=== PATIENT | female | born 1980 | race Caucasian/White ===

== ENCOUNTER 2018-05-01 07:18 | Emergency (ER) | payer SELFPAY ==
[~2018-05-01] VITALS: Ht 157.5 cm; Wt 59.1 kg
[2018-05-01] MEDS ORDERED: ONDANSETRON HCL 4 MG/2 ML VIAL IVP ONE (08:45)
[2018-05-01] MEDS ORDERED: PANTOPRAZOLE SODIUM 40 MG/VIAL IVP ONE (08:45)
[2018-05-01 08:48] LABS: BASOPHILS % (AUTO) 0.2 % (0.0-2.0); EOSINOPHILS % (AUTO) 0.7 % (1.0-6.0); HEMATOCRIT 36.3 % (36-46); HEMOGLOBIN 12.4 g/dL (12.0-16.0); LYMPHOCYTES # (AUTO) 1.3 K/uL (1.0-4.8); LYMPHOCYTES % (AUTO) 11.2 % (22.0-44.0); MEAN CORPUSCULAR HEMOGLOBIN 29.5 pg (26.0-34.0); MEAN CORPUSCULAR HGB CONC 34.2 G/dL (31.0-37.0); MEAN CORPUSCULAR VOLUME 86 fL (80-100); MONOCYTES # (AUTO) 0.4 K/uL (0.1-1.0); MONOCYTES % (AUTO) 3.8 % (2.0-9.0); NEUTROPHILS # (AUTO) 9.5 K/uL (1.8-7.7); NEUTROPHILS % (AUTO) 84.1 % (40.0-70.0); PLATELET COUNT (AUTO) 256 K/uL (150-450); RED BLOOD CELL COUNT(AUTO) 4.21 MIL/uL (4.00-5.20)
[2018-05-01 08:58] LABS: ANION GAP 12 mmol/L (8-16); CALCIUM, TOTAL 8.6 mg/dL (8.8-10.5); CARBON DIOXIDE 21 mmol/L (22-29); CHLORIDE 104 mmol/L (98-107); CREATININE 0.49 mg/dL (0.60-1.30); GLOMERULAR FILTR. RATE CALC > 60 mL/min (>60); GLUCOSE,RANDOM 119 mg/dL (70-110); POTASSIUM 3.6 mmol/L (3.5-5.1); SODIUM SERUM 137 mmol/L (136-145); UREA NITROGEN, BLOOD 9 mg/dL (7-18)
[2018-05-01 09:03] LABS: ALANINE AMINOTRANSFERASE 22 U/L (12-78); ALBUMIN 3.8 g/dL (3.4-5.0); ALKALINE PHOSPHATASE 62 U/L (46-116); ASPARTATE AMINOTRANSFERASE 12 U/L (15-37); BILIRUBIN,TOTAL 0.5 mg/dL (0.1-1.0); LIPASE 124 U/L (73-393); TOTAL PROTEIN, SERUM 7.5 g/dL (6.4-8.2)
[2018-05-01 09:18] LABS: APPEARANCE,URINE CLEAR (CLEAR); BILIRUBIN,URINE NEGATIVE (NEGATIVE); GLUCOSE, URINE (UA) NEGATIVE (NEGATIVE); KETONES,URINE 15 mg/dL (NEGATIVE); LEUKOCYTE ESTERASE ,URINE NEGATIVE (NEGATIVE); NITRATE,URINE NEGATIVE (NEGATIVE); OCCULT BLOOD,URINE NEGATIVE (NEGATIVE); PH,URINE 8.5 (5.0-8.0); PROTEIN,URINE POS 1+ (NEGATIVE); UROBILINOGEN,URINE 0.2 mg/dL (<=1.0)
[2018-05-01 09:55] VITALS: BP 109/55
== END 2018-05-01 09:58 | disposition home or self-care (01) ==
LOC: EMS 07:19
DX: K80.20 Calculus of gallbladder without cholecystitis without obstruction (principal)
CPT/HCPCS: 36415; 76700; 80053; 81003; 83690; 84703; 85025; 96374; 96375; 99285; C9113; J2405

== ENCOUNTER 2018-10-24 17:23 | Inpatient (IN) | payer MEDICAID ==
[~2018-10-24] VITALS: Ht 162.6 cm; Wt 63.2 kg
[2018-10-24] MEDS ORDERED: ONDANSETRON HCL 4 MG/2 ML VIAL IVP ONE (18:15)
[2018-10-24] MEDS ORDERED: KETOROLAC TROMETHAMINE 30 MG/ML VIAL IVP ONE (18:15)
[2018-10-24 18:32] LABS: APPEARANCE,URINE CLOUDY (CLEAR); BILIRUBIN,URINE NEGATIVE (NEGATIVE); GLUCOSE, URINE (UA) NEGATIVE (NEGATIVE); KETONES,URINE TRACE mg/dL (NEGATIVE); LEUKOCYTE ESTERASE ,URINE NEGATIVE (NEGATIVE); NITRATE,URINE NEGATIVE (NEGATIVE); OCCULT BLOOD,URINE NEGATIVE (NEGATIVE); PROTEIN,URINE NEGATIVE (NEGATIVE); UROBILINOGEN,URINE 0.2 mg/dL (<=1.0)
[2018-10-24 18:33] LABS: BASOPHILS % (AUTO) 0.6 % (0.0-2.0); EOSINOPHILS % (AUTO) 2.4 % (1.0-6.0); HEMATOCRIT 37.7 % (36-46); HEMOGLOBIN 12.5 g/dL (12.0-16.0); LYMPHOCYTES # (AUTO) 2.8 K/uL (1.0-4.8); LYMPHOCYTES % (AUTO) 38.4 % (22.0-44.0); MEAN CORPUSCULAR HEMOGLOBIN 27.3 pg (26.0-34.0); MEAN CORPUSCULAR HGB CONC 33.3 G/dL (31.0-37.0); MEAN CORPUSCULAR VOLUME 82 fL (80-100); MONOCYTES # (AUTO) 0.5 K/uL (0.1-1.0); MONOCYTES % (AUTO) 6.7 % (2.0-9.0); NEUTROPHILS # (AUTO) 3.7 K/uL (1.8-7.7); NEUTROPHILS % (AUTO) 51.9 % (40.0-70.0); PLATELET COUNT (AUTO) 336 K/uL (150-450); RED CELL DISTRIBUTION WIDTH 14.6 % (11.5-14.5)
[2018-10-24 18:36] LABS: ANION GAP 12 mmol/L (8-16); CALCIUM, TOTAL 8.8 mg/dL (8.8-10.5); CARBON DIOXIDE 23 mmol/L (22-29); CHLORIDE 102 mmol/L (98-107); CREATININE 0.53 mg/dL (0.60-1.30); GLOMERULAR FILTR. RATE CALC > 60 mL/min (>60); GLUCOSE,RANDOM 103 mg/dL (70-110); POTASSIUM 3.5 mmol/L (3.5-5.1); SODIUM SERUM 137 mmol/L (136-145); UREA NITROGEN, BLOOD 12 mg/dL (7-18)
[2018-10-24 18:43] LABS: ALANINE AMINOTRANSFERASE 36 U/L (12-78); ALBUMIN 3.8 g/dL (3.4-5.0); ALKALINE PHOSPHATASE 88 U/L (46-116); ASPARTATE AMINOTRANSFERASE 37 U/L (15-37); BILIRUBIN,TOTAL 0.4 mg/dL (0.1-1.0); LIPASE 856 U/L (73-393); TOTAL PROTEIN, SERUM 8.3 g/dL (6.4-8.2)
[2018-10-24] MEDS ORDERED: 0.9% SODIUM CHLORIDE 10 ML SYRINGE IVP PRN (20:30)
[2018-10-24] MEDS ORDERED: ACETAMINOPHEN 325 MG TABLET PO PRN (20:30)
[2018-10-24] MEDS ORDERED: ONDANSETRON HCL 4 MG/2 ML VIAL IVP PRN (20:30)
[2018-10-24] MEDS ORDERED: HYDROmorphone 2 MG/ML SYRINGE IVP PRN (20:30)
[2018-10-24] MEDS ORDERED: SODIUM CHLORIDE 0.9% 1,000 ML IV ONE (20:30)
[2018-10-24 21:37] VITALS: BP 130/72
[2018-10-25 00:10] VITALS: BP 117/77
[2018-10-25 05:07] VITALS: BP 107/57
[2018-10-25 06:26] LABS: BASOPHILS % (AUTO) 0.7 % (0.0-2.0); EOSINOPHILS % (AUTO) 2.6 % (1.0-6.0); HEMATOCRIT 32.9 % (36-46); HEMOGLOBIN 11.5 g/dL (12.0-16.0); LYMPHOCYTES # (AUTO) 2.3 K/uL (1.0-4.8); LYMPHOCYTES % (AUTO) 40.5 % (22.0-44.0); MEAN CORPUSCULAR HEMOGLOBIN 28.5 pg (26.0-34.0); MEAN CORPUSCULAR HGB CONC 34.8 G/dL (31.0-37.0); MEAN CORPUSCULAR VOLUME 82 fL (80-100); MONOCYTES # (AUTO) 0.4 K/uL (0.1-1.0); MONOCYTES % (AUTO) 7.4 % (2.0-9.0); NEUTROPHILS # (AUTO) 2.7 K/uL (1.8-7.7); NEUTROPHILS % (AUTO) 48.8 % (40.0-70.0); PLATELET COUNT (AUTO) 273 K/uL (150-450); RED BLOOD CELL COUNT(AUTO) 4.02 MIL/uL (4.00-5.20); RED CELL DISTRIBUTION WIDTH 14.5 % (11.5-14.5)
[2018-10-25 06:48] LABS: ALANINE AMINOTRANSFERASE 73 U/L (12-78); ALKALINE PHOSPHATASE 75 U/L (46-116); ANION GAP 7 mmol/L (8-16); ASPARTATE AMINOTRANSFERASE 55 U/L (15-37); BILIRUBIN,TOTAL 0.5 mg/dL (0.1-1.0); CALCIUM, TOTAL 8.3 mg/dL (8.8-10.5); CARBON DIOXIDE 26 mmol/L (22-29); CHLORIDE 106 mmol/L (98-107); CREATININE 0.44 mg/dL (0.60-1.30); GLOMERULAR FILTR. RATE CALC > 60 mL/min (>60); GLUCOSE,RANDOM 90 mg/dL (70-110); POTASSIUM 3.6 mmol/L (3.5-5.1); SODIUM SERUM 139 mmol/L (136-145); TOTAL PROTEIN, SERUM 6.5 g/dL (6.4-8.2); UREA NITROGEN, BLOOD 9 mg/dL (7-18)
[2018-10-25] MEDS ORDERED: ONDANSETRON HCL 4 MG/2 ML VIAL IVP PRN (07:00)
[2018-10-25 07:10] LABS: AMYLASE 57 U/L (25-115); LIPASE 133 U/L (73-393)
[2018-10-25 07:51] VITALS: BP 114/52
[2018-10-25] MEDS: DEXTROSE 5%-0.45% SODIUM CHL 1,000 ML IV SCH ×2 (08:05→19:56)
[2018-10-25] MEDS ORDERED: RINGERS SOLUTION,LACTATED 1,000 ML IV ONE ×4 (11:17→17:37)
[2018-10-25 11:18] VITALS: BP 120/74
[2018-10-25 11:58] LABS: PROTHROMBIN TIME 10.5 SEC (9.4-11.6)
[2018-10-25] MEDS ORDERED: IOHEXOL 240 MG/ML 20 ML VIAL ONE (14:34)
[2018-10-25] MEDS ORDERED: BUPIVACAINE 0.25%/EPI 1:200,000/PF 10 ML VIAL ONE (14:38)
[2018-10-25] MEDS ORDERED: SODIUM CL IRRIG SOLN BAG 3,000 ML IRRIG ONE (14:39)
[2018-10-25] MEDS ORDERED: FentaNYL CITRATE-PF 100 MCG/2 ML VIAL IVP PRN ×2 (14:45→17:45)
[2018-10-25] MEDS ORDERED: MEPERIDINE-PF 25 MG/ML VIAL IVP PRN ×2 (14:45→17:45)
[2018-10-25] MEDS ORDERED: HYDROmorphone 2 MG/ML SYRINGE IVP PRN ×2 (14:45→17:45)
[2018-10-25 19:00] VITALS: BP 129/70
[2018-10-25] MEDS: HYDROmorphone 2 MG/ML SYRINGE IVP PRN ×2 (19:30→23:45)
[2018-10-25] MEDS ORDERED: OXYGEN THERAPY IH SCH ×2 (20:00)
[2018-10-26 00:11] VITALS: BP 115/55
[2018-10-26 04:00] VITALS: BP 118/72
[2018-10-26] MEDS ORDERED: DEXAMETHASONE SOD PHOS 4 MG/ML VIAL IVP ONE (05:23)
[2018-10-26] MEDS ORDERED: FentaNYL CITRATE-PF 100 MCG/2 ML VIAL IVP ONE (05:23)
[2018-10-26] MEDS ORDERED: LIDOCAINE/PF 2% 5 ML VIAL IM ONE (05:23)
[2018-10-26] MEDS ORDERED: SUCCINYLCHOLINE CHLORIDE 20 MG/ML 10 ML VIAL IVP ONE (05:23)
[2018-10-26] MEDS ORDERED: PROPOFOL 1% 20 ML VIAL IVP ONE (05:23)
[2018-10-26] MEDS ORDERED: MIDAZOLAM HCL 2 MG/2 ML VIAL IVP ONE (05:23)
[2018-10-26] MEDS ORDERED: ONDANSETRON HCL 4 MG/2 ML VIAL IVP ONE (05:23)
[2018-10-26] MEDS ORDERED: ROCURONIUM BROMIDE 10 MG/ML 5 ML VIAL IVP ONE (05:23)
[2018-10-26] MEDS ORDERED: 0.9% SODIUM CHLORIDE 10 ML SYRINGE IVP ONE (05:23)
[2018-10-26] MEDS ORDERED: KETOROLAC TROMETHAMINE 60 MG/2 ML VIAL IM ONE (05:23)
[2018-10-26 07:35] VITALS: BP 115/59
[2018-10-26] MEDS: DEXTROSE 5%-0.45% SODIUM CHL 1,000 ML IV SCH (08:36)
[2018-10-26 11:41] VITALS: BP 126/68
[2018-10-26] MEDS: HYDROmorphone 2 MG/ML SYRINGE IVP PRN (14:22)
[2018-10-26] MEDS ORDERED: MORPHINE SULFATE 2 MG/ML SYRINGE IVP PRN (15:00)
[2018-10-26] MEDS ORDERED: ZOLPIDEM TARTRATE 5 MG TABLET PO PRN (15:00)
[2018-10-26] MEDS ORDERED: ACETAMINOPHEN 325 MG TABLET PO PRN (15:00)
[2018-10-26] MEDS ORDERED: BISACODYL 10 MG RECTAL RECTAL SUPPOSITORY PR PRN (15:00)
[2018-10-26] MEDS ORDERED: IPRATROPIUM BROMIDE 0.5 MG/2.5 ML NEB SOLUTION NEB PRN (15:00)
[2018-10-26] MEDS ORDERED: ONDANSETRON HCL 4 MG/2 ML VIAL IVP PRN (15:00)
[2018-10-26] MEDS ORDERED: HYDROCODONE/ACETAMINOPHEN 5-325 MG TABLET PO PRN (15:00)
[2018-10-26] MEDS ORDERED: MAGNESIUM HYDROXIDE SUSPENSION 30 ML UDCUP PO PRN (15:00)
[2018-10-26] MEDS ORDERED: ALBUTEROL SULFATE 2.5 MG/0.5 ML NEB SOLUTION NEB PRN (15:00)
[2018-10-26 15:35] VITALS: BP 118/64
[2018-10-26] MEDS ORDERED: HYDR-4061 PO (15:57)
[2018-10-26] MEDS ORDERED: DSS100 PO (15:58)
[2018-10-26] MEDS ORDERED: HEPARIN SODIUM,PORCINE 5,000 UNITS/ML VIAL SQ SCH (16:00)
[2018-10-26] MEDS ORDERED: DOCUSATE SODIUM 100 MG CAPSULE PO SCH (21:00)
[2018-10-27] MEDS ORDERED: PANTOPRAZOLE SODIUM 40 MG/VIAL IVP SCH (09:00)
== END 2018-10-26 18:15 | disposition home or self-care (01) | DRG 263 ==
LOC: EMS 17:23 → 6N 20:00
PROVIDERS: ADMIT Hospitalist; ATTEND Hospitalist
PROC: BF131ZZ Fluoroscopy of Gallbladder and Bile Ducts using Low Osmolar Contrast (ICD-10-PCS; 2018-10-25)
PROC: 0FT44ZZ Resection of Gallbladder, Percutaneous Endoscopic Approach (ICD-10-PCS; principal; 2018-10-25 17:00)
DX: K85.10 Biliary acute pancreatitis without necrosis or infection (principal)
CPT/HCPCS: 76705; 88304; 93005; G0378; J0330; J0690; J1100; J1170; J1644; J1885; J2250; J2405; J2704; J3010; J3490; J7030; J7120; Q9966

== ENCOUNTER 2024-08-02 09:07 | Emergency (ER) | payer MEDICAID ==
[~2024-08-02] VITALS: Ht 152.4 cm; Wt 72.7 kg
[~2024-08-02 09:07] MED LIST: DSS100 PO; HYDR-4061 PO
[2024-08-02 09:12] VITALS: TEMP 98.7
[2024-08-02] MEDS ORDERED: LISI5TAB21 PO (09:14)
[2024-08-02] MEDS ORDERED: CHOL500043 PO (09:14)
[2024-08-02 09:43] LABS: BASOPHILS % (AUTO) 0.6 % (0.0-2.0); HEMATOCRIT 37.6 % (36-46); HEMOGLOBIN 12.5 g/dL (12.0-16.0); LYMPHOCYTES # (AUTO) 2.2 K/uL (1.0-4.8); LYMPHOCYTES % (AUTO) 34.3 % (22.0-44.0); MEAN CORPUSCULAR HEMOGLOBIN 27.9 pg (26.0-34.0); MEAN CORPUSCULAR HGB CONC 33.3 G/dL (31.0-37.0); MEAN CORPUSCULAR VOLUME 84 fL (80-100); MONOCYTES # (AUTO) 0.3 K/uL (0.1-1.0); MONOCYTES % (AUTO) 5.1 % (2.0-9.0); NEUTROPHILS # (AUTO) 3.6 K/uL (1.8-7.7); PLATELET COUNT (AUTO) 335 K/uL (150-450); RED BLOOD CELL COUNT(AUTO) 4.48 MIL/uL (4.00-5.20); WHITE BLOOD COUNT (AUTO) 6.3 K/uL (4.5-11.0)
[2024-08-02 09:52] LABS: ANION GAP 7 mmol/L (8-16); CALCIUM, TOTAL 8.9 mg/dL (8.8-10.5); CARBON DIOXIDE 26 mmol/L (22-29); CHLORIDE 103 mmol/L (98-107); GLOMERULAR FILTR. RATE CALC > 60 mL/min (>60); GLUCOSE,RANDOM 99 mg/dL (70-110); POTASSIUM 3.9 mmol/L (3.5-5.1); SODIUM SERUM 136 mmol/L (136-145); UREA NITROGEN, BLOOD 8 mg/dL (7-18)
[2024-08-02 09:54] LABS: APPEARANCE,URINE CLEAR (CLEAR); BILIRUBIN,URINE NEGATIVE (NEGATIVE); COLOR,URINE COLORLESS (YELLOW); GLUCOSE, URINE (UA) NEGATIVE (NEGATIVE); KETONES,URINE NEGATIVE (NEGATIVE); LEUKOCYTE ESTERASE ,URINE NEGATIVE (NEGATIVE); NITRATE,URINE NEGATIVE (NEGATIVE); OCCULT BLOOD,URINE LARGE (NEGATIVE); PROTEIN,URINE NEGATIVE (NEGATIVE); SPECIFIC GRAVITIY, URINE 1.009 (1.003-1.030); UROBILINOGEN,URINE <=1.0 mg/dL (<=1.0)
[2024-08-02] MEDS: ACETAMINOPHEN 500 MG TABLET PO ONE (09:55)
[2024-08-02 09:57] LABS: ALANINE AMINOTRANSFERASE 36 U/L (12-78); ALBUMIN 3.5 g/dL (3.4-5.0); ALKALINE PHOSPHATASE 76 U/L (46-116); ASPARTATE AMINOTRANSFERASE 27 U/L (15-37); BILIRUBIN,TOTAL 0.5 mg/dL (0.1-1.0); LIPASE 24 U/L (16-77); TOTAL PROTEIN, SERUM 7.6 g/dL (6.4-8.2)
[2024-08-02 10:04] LABS: PROTHROMBIN TIME 10.2 SEC (9.4-11.6)
[2024-08-02 10:06] LABS: BACTERIA,URINE None Seen /HPF (None Seen); WBC,URINE None Seen /HPF (0-5)
[2024-08-02 13:15] VITALS: BP 142/78; PULSE 61; RESP 14; O2SAT 100
== END 2024-08-02 13:55 | disposition home or self-care (01) ==
LOC: EMS 09:07
DX: N93.8 Other specified abnormal uterine and vaginal bleeding (principal); R10.2 Pelvic and perineal pain; I10 Essential (primary) hypertension; Z98.51 Tubal ligation status; Z79.899 Other long term (current) drug therapy
CPT/HCPCS: 76830; 76856; 80048; 80076; 81001; 83690; 84703; 85025; 85610; 85730; 99284